=== PATIENT | female | born 1985 | race Caucasian/White ===

== ENCOUNTER 2020-11-05 09:05 | Outpatient (CLI) | payer OTHER ==
--- NOTE | 2020-11-06 13:17 | Mammography Report ---
BILATERAL DIGITAL DIAGNOSTIC MAMMOGRAM 3D/2D: 11/05/2020 CLINICAL: Baseline exam. Palpable right breast lump. Baseline mammogram. No prior exams were available for comparison. The tissue of both breasts is pred ominantly fatty. There is a 1 cm round fat containing oil cyst in the right breast at 12 o'clock anterior depth. This is near the site of palpable abnormality. No other significant masses, calcifications, or other findings are seen in either breast. IMPRESSION: INCOMPLETE: NEEDS ADDITIONAL IMAGING EVALUATION The 1 cm oil cyst in the right breast is benign. It is uncertain if this corresponds to the palpable abnormality. A targeted ultrasound of the palpable abnormality is recommended and will immediately follow. This exam was interpreted at Station ID: [id number]. NOTE: For mammograms, a report in lay terms will be sent to the patient. Approximately 15% of breast malignancies will not be visualized mammographically. In the management of a palpable breast mass, a negative mammogram must not discourage biopsy of a clinically suspicious lesion. Electronically Signed By: Julian Neal M.D. slc/:11/05/2020 10:26:19 ACR BI-RADS Category 0: Incomplete 3340F PARENCHYMAL PATTERN: (F) - The breast(s) demonstrate(s) diffuse fatty replacement. BI-RADS CATEGORY: (0) - 0 Ultrasound [id number] Immediate follow-up LATERALITY: (B)
--- NOTE | 2020-11-06 13:17 | Ultrasound Report ---
LIMITED ULTRASOUND OF RIGHT BREAST: 11/05/2020 CLINICAL: Palpable right breast lump. Comparison is made to exam dated: 11/05/2020 mammogram - [facility]. Color flow ultrasound of the right breast 12 o'clock region was performed. Martinez scale images of the real-time examination were reviewed. There is a benign 1 cm x 1 cm x 0.7 cm oval oil cyst with a septated internal wall in the right breas t at 12 o'clock anterior depth 9 cm from the nipple. This oval oil cyst displays a well-defined boun raffy and posterior acoustic enhancement. This correlates as palpated and with mammography findings. Color flow imaging demonstrates that there is no vascularity present. IMPRESSION: BENIGN There is no sonographic evidence of malignancy. Palpable abnormality corresponds to a 1 cm benign oil cyst in the right breast. Exam findings were conveyed to the patient. Patient is advised to monitor for significant change. Return to screening mammogram schedule is recommended. This exam was interpreted at Station ID: [id number]. Electronically Signed By: Julian Neal M.D. slc/:11/05/2020 11:48:29 Ultrasound BI-RADS: 2 Benign BI-RADS CATEGORY: (2) - 2 Mammogram [id number] 5 year screening LATERALITY: (B)
== END 2020-11-05 09:06 | disposition home or self-care (01) ==
LOC: DI 09:05
PROVIDERS: ATTEND Family Medicine
DX: N60.01 Solitary cyst of right breast (principal)

== ENCOUNTER 2021-01-05 09:16 | Emergency (ER) | payer OTHER ==
[2021-01-05 09:24] VITALS: BP 138/84
--- NOTE | 2021-01-05 10:09 | ED Physician Documentation ---
PD HPI LOWER EXT INJURY - Stated complaint Stated Complaint: L FOOT SWELLING - Chief complaint Chief Complaint: Ext Problem - History obtained from History obtained from: Patient - History of Present Illness PD HPI LOW EXT INJURY LOCATION: Left, Foot Type of injury: Laceration Where injury occurred: Park Timing - onset: How many weeks ago (2) Timing - duration: Weeks (2) Timing - details: Gradual onset, Still present Improved by: Rest, Immobilization Worsened by: Moving, Palpating Associated symptoms: Swelling, Discolored Contributing factors: No: Anticoagulated Similar symptoms before: Has not had sx before Recently seen: Clinic - Additional information Additional information: 35-year-old female was walking in the park when she struck her foot on something in the grass and lacerated the medial aspect of the left foot. She has small cut and this became infected she eventually went to see her primary care doctor and was put on some Septra. She had some generalized swelling of her foot when the infection was active and this has improved. The redness surrounding the laceration improved and then worsened. She has had swelling of both of her feet she has been keeping them up and has had resolution of that. She has some mild swelling to the left foot today and increased redness. She has not had any significant drainage the cut is small. She is not otherwise ill. 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 HEENT: None Psych: Depression, Anxiety Musculoskeletal: Chronic back pain Derm: None - Past Surgical History Past Surgical History: Yes General: Cholecystectomy - Present Medications Home Medications: Ambulatory Orders Medication Instructions Recorded Confirmed Albuterol Sulfate [Proair Hfa 1 - 2 puffs INH Q4H PRN 01/05/21 01/05/21 Inhaler] Cetirizine HCl [Zyrtec] 10 mg PO DAILY 01/05/21 01/05/21 Fluticasone/Salmeterol [Advair 1 each IH DAILY 01/05/21 01/05/21 500-50 Diskus] Sulfamethox/Trimeth 800/160 1 tablet PO BID 01/05/21 01/05/21 [Bactrim Ds] cephALEXin [Keflex] 500 mg PO Q6H #28 cap 01/05/21 - Allergies Allergies/Adverse Reactions: Allergies Allergy/AdvReac Type Severity Reaction Status Date / Time moxifloxacin Allergy Unknown Verified 01/05/21 09:28 - Social History Does the pt smoke?: No Smoking Status: Former smoker Does the pt drink ETOH?: Yes Does the pt have substance abuse?: Yes Substance Use and Type: Marijuana - Immunizations Immunizations are current?: Yes PD ED PE NORMAL - Vitals Vital signs reviewed: Yes (Hypertensive) - General General: Alert and oriented X 3, No acute distress, Well developed/nourished - HEENT HEENT: Atraumatic, PERRL, EOMI - Respiratory Respiratory: No respiratory distress - Derm Derm: Normal color, Warm and dry, No rash - Extremities Extremities: No deformity, Other (There is mild swelling to the left foot and over the dorsal medial surface of the midfoot there is a 1.5 cm laceration that is granulating and has some surrounding erythema. The surrounding erythema is less than 1 cm. There is no lymphangitic streaking.) - Neuro Neuro: Alert and oriented X 3, No motor deficit, No sensory deficit, Normal speech Eye Opening: Spontaneous Motor: Obeys Commands Verbal: Oriented GCS Score: 15 - Psych Psych: Normal mood, Normal affect Results - Vitals Vitals: Vital Signs - 24 hr 01/05/21 09:21 Temperature 36.5 C Heart Rate 86 Respiratory 16 Rate Blood Pressure 138/84 H O2 Saturation 96 Oxygen O2 Source Room air PD MEDICAL DECISION MAKING - ED course Complexity details: considered differential, d/w patient ED course: 35-year-old female has had a laceration to her left foot which has become infected. She was on some Septra this seem to be helping and now it appears the infection has worsened. The infection appears mild and we will place the patient on Keflex. Departure - Departure Disposition: 01 Home, Self Care Clinical Impression: Infected wound Condition: Stable Instructions: Infec Wound Recognize Tx Follow-Up: TC ELDRIDGE DO [Primary Care Provider] - Prescriptions: cephALEXin [Keflex] 500 mg PO Q6H #28 cap
== END 2021-01-05 10:22 | disposition home or self-care (01) ==
LOC: ED 09:16
DX: S91.312A Laceration without foreign body, left foot, initial encounter (principal); L08.9 Local infection of the skin and subcutaneous tissue, unspecified; W26.9XXA Contact with unspecified sharp object(s), initial encounter; Y93.01 Activity, walking, marching and hiking; Y92.830 Public park as the place of occurrence of the external cause; Z87.891 Personal history of nicotine dependence
CPT/HCPCS: 99282; 99284

== ENCOUNTER 2021-04-26 10:43 | Emergency (ER) | payer OTHER ==
[2021-04-26 11:41] VITALS: BP 150/103
--- NOTE | 2021-04-26 12:24 | ED Physician Documentation ---
History of Present Illness - Stated complaint Stated Complaint: BLOOD FROM RIGHT EAR,CONGESTION - Chief complaint Chief Complaint: Heent - History obtained from History obtained from: Patient - Additonal information Additional information: Patient presents with feeling of fullness in both ears as well as some blood drainage from the right ear noticed this morning. She has had a mild cough and cold symptoms for the last couple of days, ears felt full and nose though they were popping yesterday and then she noticed the blood drainage today. She did not use any Q-tips or stick anything into the ear. She has not had a fever, chills, chest pain or dyspnea, abdominal pain, nausea vomiting or diarrhea. She is also requesting a refill of her inhaler, she has mild intermittent asthma which tends to get worse with colds, she called her primary care who is out of the office today and unable to refill her prescription. Review of Systems Ten Systems: 10 systems reviewed and negative Ears: reports: Ear pain, Drainage/discharge. denies: Loss of hearing, Foreign body Nose: reports: Congestion Throat: reports: Reviewed and negative Cardiac: reports: Reviewed and negative Respiratory: reports: Cough. 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 : None HEENT: None Psych: Depression, Anxiety Musculoskeletal: Chronic back pain Derm: None - Past Surgical History Past Surgical History: Yes General: Cholecystectomy - Present Medications Home Medications: Ambulatory Orders Medication Instructions Recorded Confirmed Albuterol Sulfate [Proair Hfa 1 - 2 puffs INH Q4H PRN 01/05/21 01/05/21 Inhaler] Cetirizine HCl [Zyrtec] 10 mg PO DAILY 01/05/21 01/05/21 Fluticasone/Salmeterol [Advair 1 each IH DAILY 01/05/21 01/05/21 500-50 Diskus] Sulfamethox/Trimeth 800/160 1 tablet PO BID 01/05/21 01/05/21 [Bactrim Ds] cephALEXin [Keflex] 500 mg PO Q6H #28 cap 01/05/21 Albuterol Sulf [Ventolin Hfa 1 - 2 puffs INH Q4HR PRN #1 inhaler 04/26/21 Inhaler] Ciproflox/Dexameth Otic Drops 4 drops OT BID #7.5 ml 04/26/21 [Ciprodex Otic Drops] - Allergies Allergies/Adverse Reactions: Allergies Allergy/AdvReac Type Severity Reaction Status Date / Time moxifloxacin Allergy Unknown Verified 01/05/21 09:28 - Social History Does the pt smoke?: No Smoking Status: Former smoker Does the pt drink ETOH?: Yes Does the pt have substance abuse?: Yes - Immunizations Immunizations are current?: Yes PD ED PE NORMAL - Vitals Vital signs reviewed: Yes - General General: Alert and oriented X 3, No acute distress, Well developed/nourished - HEENT HEENT: Atraumatic, Moist mucous membranes, Pharynx benign, Other (TMs normal bilaterally, no tympanic membrane perforation, no erythema. There is a mild abrasion on the base of the right ear canal with some bloody drainage. There is no external ear swelling, no mastoid tenderness bilaterally) - Neck Neck: Supple, no meningeal sign, No JVD - Cardiac Cardiac: RRR, No murmur - Respiratory Respiratory: No respiratory distress, Clear bilaterally - Abdomen Abdomen: Normal bowel sounds, Soft - Derm Derm: Normal color, Warm and dry - Neuro Neuro: Alert and oriented X 3 Eye Opening: Spontaneous Motor: Obeys Commands Verbal: Oriented GCS Score: 15 Results - Vitals Vitals: Vital Signs - 24 hr 04/26/21 11:35 Temperature 36.1 C L Heart Rate 116 H Respiratory 20 Rate Blood Pressure 150/103 H O2 Saturation 96 Oxygen O2 Source Room air PD MEDICAL DECISION MAKING - ED course Complexity details: d/w patient ED course: Patient is here with bloody drainage from the right ear. Her exam is largely reassuring, tympanic membrane is intact, there is no bulging or swelling to suggest infection, there is an abrasion that is bleeding on the base of the right ear canal. I will discharge her with Ciprodex to help prevent infection and assist with pain. Advised patient that the fullness she is feeling is likely eustachian tube dysfunction or congestion from her URI and should improve as her cold symptoms improve though can take longer. She may try [id number] decongestant for this. Advised not to put anything in the ears, no Q-tips or other things into the ears. Patient requesting refill of albuterol, she is not currently in exacerbation of her asthma but I have given a albuterol refill until she is able to follow-up with her primary care provider. Departure - Departure Disposition: 01 Home, Self Care Clinical Impression: Otitis externa Qualifiers: Otitis externa type: other infective Chronicity: acute Laterality: right Qualified Code(s): H60.391 - Other infective otitis externa, right ear Condition: Good Instructions: ED Otitis Externa Ch Prescriptions: Albuterol Sulf [Ventolin Hfa Inhaler] 1 - 2 puffs INH Q4HR PRN #1 inhaler PRN Reason: Shortness Of Air/Wheezing Ciproflox/Dexameth Otic Drops [Ciprodex Otic Drops] 4 drops OT BID #7.5 ml Comments: You have an abrasion of the right ear canal, this is often caused by Q-tips or sticking fingers in the ear but can also be caused from colds and congestion. I have prescribed you an antibiotic called Ciprodex you can place this in the ear as prescribed. I also renewed your albuterol inhaler temporarily but you should follow-up with your primary care provider for ongoing renewals. Discharge Date/Time: 04/26/21 12:31
== END 2021-04-26 12:31 | disposition home or self-care (01) ==
LOC: ED 10:43
DX: S00.411A Abrasion of right ear, initial encounter (principal); X58.XXXA Exposure to other specified factors, initial encounter; J06.9 Acute upper respiratory infection, unspecified; Z87.891 Personal history of nicotine dependence
CPT/HCPCS: 99282; 99283

== ENCOUNTER 2021-05-12 14:49 | Emergency (ER) | payer OTHER ==
[2021-05-12] MEDS ORDERED: CHERRY SYRUP 10 ML UDC PO ONE (15:04)
[2021-05-12] MEDS ORDERED: DEXAMETHASONE 10 MG/ML VIAL PO STA (15:04)
--- NOTE | 2021-05-12 15:08 | ED Physician Documentation ---
History of Present Illness - Stated complaint Stated Complaint: LIP SWELLING - Chief complaint Chief Complaint: Allergic Rx - History obtained from History obtained from: Patient - History of Present Illness Timing: Today - Additonal information Additional information: 35-year-old female had her left lower lip pierced 1 week ago and she initially had a tiny bit of redness associated with it that is now resolved today she has marked swelling just of the left side of her upper lip of her lower lip. She is not on an RADHA inhibitor. She is not having swelling to her tongue. She has not otherwise otherwise been ill.She did have a cough last month that has persisted but improved. Review of Systems Constitutional: denies: Fever, Chills Eyes: denies: Decreased vision Ears: denies: Ear pain Nose: reports: Congestion. denies: Rhinorrhea / runny nose Throat: denies: Sore throat Cardiac: denies: Chest pain / pressure, Palpitations Respiratory: reports: Cough, Wheezing. 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 HEENT: None Psych: Depression, Anxiety Musculoskeletal: Chronic back pain Derm: None - Past Surgical History Past Surgical History: Yes General: Cholecystectomy - Present Medications Home Medications: Ambulatory Orders Medication Instructions Recorded Confirmed Albuterol Sulfate [Proair Hfa 1 - 2 puffs INH Q4H PRN 01/05/21 01/05/21 Inhaler] Cetirizine HCl [Zyrtec] 10 mg PO DAILY 01/05/21 01/05/21 Fluticasone/Salmeterol [Advair 1 each IH DAILY 01/05/21 01/05/21 500-50 Diskus] Sulfamethox/Trimeth 800/160 1 tablet PO BID 01/05/21 01/05/21 [Bactrim Ds] cephALEXin [Keflex] 500 mg PO Q6H #28 cap 01/05/21 Albuterol Sulf [Ventolin Hfa 1 - 2 puffs INH Q4HR PRN #1 inhaler 04/26/21 Inhaler] Ciproflox/Dexameth Otic Drops 4 drops OT BID #7.5 ml 04/26/21 [Ciprodex Otic Drops] - Allergies Allergies/Adverse Reactions: Allergies Allergy/AdvReac Type Severity Reaction Status Date / Time moxifloxacin Allergy Unknown Verified 05/12/21 14:51 - Social History Does the pt smoke?: No Smoking Status: Former smoker Does the pt drink ETOH?: Yes Does the pt have substance abuse?: Yes - Immunizations Immunizations are current?: Yes PD ED PE NORMAL - Vitals Vital signs reviewed: Yes (Hypertensive) - General General: Alert and oriented X 3, No acute distress, Well developed/nourished - HEENT HEENT: Atraumatic, PERRL, EOMI, Ears normal, Pharynx benign, Dentition benign, Other (There is angioedema to the left lower lip and there is a piercing through the middle of this without signs of inflammation surrounding the study and there is no drainage there is no fluctuance minimally tender.) - Neck Neck: Supple, no meningeal sign, No bony TTP - Cardiac Cardiac: RRR, No murmur - Respiratory Respiratory: No respiratory distress, Clear bilaterally - Abdomen Abdomen: Normal bowel sounds, Soft, Non tender, Non distended, No organomegaly - Back Back: No CVA TTP, No spinal TTP - Derm Derm: Normal color, Warm and dry, No rash - Extremities Extremities: No deformity, No edema - Neuro Neuro: Alert and oriented X 3, 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, No motor deficit, No sensory deficit, Normal speech Eye Opening: Spontaneous Motor: Obeys Commands Verbal: Oriented GCS Score: 15 - Psych Psych: Normal mood, Normal affect Results - Vitals Vitals: Vital Signs - 24 hr 05/12/21 14:51 Temperature 36.5 C Heart Rate 83 Respiratory 16 Rate Blood Pressure 142/93 H O2 Saturation 96 Oxygen O2 Source Room air PD MEDICAL DECISION MAKING - ED course Complexity details: reviewed results, re-evaluated patient, considered differential, d/w patient ED course: 35-year-old female with swelling to her left lower lip looks like angioedema is administered dexamethasone and Benadryl. I have asked her to use a nonsedating histamine for the next 2 days. She is not on an RADHA inhibitor. She is fully vaccinated. She has a foreign body in her lip and she has not had signs or symptoms consistent with infection. I have asked her to return should she develop drainage or hany redness to the area. Departure - Departure Disposition: 01 Home, Self Care Clinical Impression: Angioedema of lips Qualifiers: Encounter type: initial encounter Qualified Code(s): T78.3XXA - Angioneurotic edema, initial encounter Condition: Stable Instructions: ED Angioedema Follow-Up: TC ELDRIDGE DO [Primary Care Provider] - Comments: Cristin, today we have diagnosed you with angioedema. The expectation with this is that the swelling will resolve and your lips look normal. If you have a recurrence of the swelling or the swelling does not go down my recommendation is to remove the stud. If you develop signs of infection with redness and drainage follow-up here for antibiotics. In the meantime the recommendation is to take a antihistamine for the next 2 days. You can take Benadryl or you can take your nonsedating Zyrtec.
[2021-05-12 15:22] VITALS: BP 146/92
== END 2021-05-12 15:22 | disposition home or self-care (01) ==
LOC: ED 14:49
DX: T78.3XXA Angioneurotic edema, initial encounter (principal); Z87.891 Personal history of nicotine dependence
CPT/HCPCS: 99282; A9270

== ENCOUNTER 2023-04-07 09:48 | Emergency (ER) | payer OTHER ==
[2023-04-07 10:05] VITALS: BP 143/105
--- OUTSIDE RECORDS SUMMARY | 2023-04-07 10:17 | EXTERNAL MEDICAL SUMMARY RPT | Continuity of Care Document ---
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 Name Role Phone Airam Cottrell Unavailable Unavailable Medications date description facility 2023-02-25 00:00 Fluticasone Propion-Salmeterol [facility] Social History date description facility 2023-02-25 00:00 Smokes tobacco daily ([facility] Vital Signs date measurement value units 2023-02-25 00:00 BMI 47.6 kg/m2 2023-02-25 00:00 BP_diastolic 80 mmHg 2023-02-25 00:00 BP_systolic 110 mmHg 2023-02-25 00:00 heart_rate 103 /min 2023-02-25 00:00 height_metric 163.83 cm 2023-02-25 00:00 height_standard 64.5 in 2023-02-25 00:00 o2_saturation 97 % 2023-02-25 00:00 temperature_metric 36.72 C 2023-02-25 00:00 temperature_standard 98.1 F 2023-02-25 00:00 weight_metric 127.91 kg 2023-02-25 00:00 weight_standard 281.99 lb
--- NOTE | 2023-04-07 10:30 | ED Physician Documentation ---
PD HPI URI - Stated complaint Stated Complaint: SOA - Chief complaint Chief Complaint: Resp - History obtained from History obtained from: Patient - History of Present Illness Timing - onset: How many weeks ago (2) Timing duration: Weeks (2) Timing details: Gradual onset, Still present (has had URI symptoms with cough and wheeze for 2 weeks and was some improving but then worse the past 3-4 days with increased wheezing and productive cough.) Associated symptoms: Chills, Productive cough, Dyspnea. No: NVD, Bilateral edema Contributing factors: COPD / asthma. 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 HEENT: None Psych: Depression, Anxiety Musculoskeletal: Chronic back pain Derm: None - Past Surgical History Past Surgical History: Yes General: Cholecystectomy - Present Medications Home Medications: Ambulatory Orders Medication Instructions Recorded Confirmed Albuterol Sulf [Ventolin Hfa 1 - 2 puffs INH Q4HR PRN #1 inhaler 04/26/21 04/07/23 Inhaler] Albuterol Sulf [Ventolin Hfa 2 - 3 puffs INH QID #1 each 04/07/23 Inhaler] Doxycycline Hyclate 100 mg PO BID 7 Days #14 cap 04/07/23 Fluticasone/Salmeterol [Advair 2 puffs INH DAILY 04/07/23 04/07/23 250-50 Diskus] Fluticasone/Salmeterol [Advair 1 each IH BID 30 Days #1 each 04/07/23 500-50 Diskus] Loratadine 10 mg PO DAILY 04/07/23 04/07/23 dexAMETHasone [Decadron] 4 mg PO DAILY #7 tablet 04/07/23 - Allergies Allergies/Adverse Reactions: Allergies Allergy/AdvReac Type Severity Reaction Status Date / Time moxifloxacin Allergy Unknown Verified 04/07/23 10:00 - Social History Does the pt smoke?: No Smoking Status: Former smoker Does the pt drink ETOH?: Yes Does the pt have substance abuse?: Yes - Immunizations Immunizations are current?: Yes PD ED PE NORMAL - Vitals Vital signs reviewed: Yes - General General: Alert and oriented X 3, No acute distress, Well developed/nourished - HEENT HEENT: Ears normal, Pharynx benign - Neck Neck: Supple, no meningeal sign, No adenopathy - Cardiac Cardiac: RRR, No murmur - Respiratory Respiratory: No respiratory distress. No: Clear bilaterally (diffuse wheeeezing without coarse sounds. ) - Abdomen Abdomen: Soft, Non tender - Derm Derm: Normal color, Warm and dry - Neuro Neuro: Alert and oriented X 3, No motor deficit, Normal speech Results - Vitals Vitals: Vital Signs - 24 hr 04/07/23 04/07/23 04/07/23 09:56 11:01 12:11 Temperature 37.1 C 36 C L Heart Rate 96 102 H 85 Respiratory 20 18 Rate Blood Pressure 143/105 H O2 Saturation 95 93 Oxygen O2 Source Room air - Rads (name of study) chest xray Relevant Findings:: Prelim report reviewed (no focal consolidation.), EMP independent interpretation of test (no pneumonia) PD Medical Decision Making - ED course Complexity details: reviewed results (chest xray no pnumonia, PTX, effusion.), re-evaluated patient (improved wheezing and breathing with neb treatment here. ), considered differential (has had URI with now increased productive cough and worse athma symptoms. Is out of her Advair past few days. Low on Albuterol but had refills available. Seems likely viral illness initially but consider secondary bacterial LRI now. ), d/w patient Departure - Departure Disposition: 01 Home, Self Care Clinical Impression: Lower resp. tract infection, Acute exacerbation of extrinsic asthma Condition: Stable Record reviewed to determine appropriate education?: Yes Follow-Up: TC ELDRIDGE DO [Primary Care Provider] - Prescriptions: Fluticasone/Salmeterol [Advair 500-50 Diskus] 1 each IH BID 30 Days #1 each dexAMETHasone [Decadron] 4 mg PO DAILY #7 tablet Doxycycline Hyclate 100 mg PO BID 7 Days #14 cap Albuterol Sulf [Ventolin Hfa Inhaler] 2 - 3 puffs INH QID #1 each Comments: Continue with your Advair twice daily. Use the albuterol inhaler 2 to 3 puffs 4 times daily for the next several days to a week. Add dexamethasone steroid orally for the next week. Your chest x-ray is clear without any signs of pneumonia. However given the flare of your asthma and the persistence of your cough, consideration would be potential bronchitis and so I would prescribe doxycycline twice daily for a week as well. I sent these prescriptions to your preferred pharmacy, [facility]. Recheck if not improving well over the next several days and return if worse. Forms: PCP List Discharge Date/Time: 04/07/23 12:11
[2023-04-07] MEDS: DOXYCYCLINE 100 MG TABLET PO STA (10:57)
[2023-04-07] MEDS: dexAMETHasone 4 MG TABLET PO STA (10:57)
[2023-04-07] MEDS: ALBUTEROL NEB 2.5 MG/3 ML INH STA (11:01)
--- NOTE | 2023-04-07 11:57 | XRAY Report ---
PROCEDURE: Chest 1 View X-Ray INDICATIONS: cough over a week; wheezing TECHNIQUE: One view of the chest was acquired. COMPARISON: None. FINDINGS: Surgical changes and devices: None. Lungs and pleura: No pleural effusions or pneumothorax. Lungs are clear. Mediastinum: Mediastinal contours appear normal. Heart size is normal. Bones and chest wall: No suspicious bony lesions. Overlying soft tissues appear unremarkable. IMPRESSION: No acute cardiopulmonary process. No focal consolidation seen. Reviewed by: Casey Suero MD on 04/07/2023 11:56 AM PDT Approved by: Casey Suero MD on 04/07/2023 11:56 AM PDT Station ID: [id number]
[2023-04-07 12:20] VITALS: O2SAT 93
== END 2023-04-07 12:11 | disposition home or self-care (01) ==
LOC: ED 09:48
DX: J45.901 Unspecified asthma with (acute) exacerbation (principal); J22 Unspecified acute lower respiratory infection; Z87.891 Personal history of nicotine dependence; Z79.899 Other long term (current) drug therapy; Z79.51 Long term (current) use of inhaled steroids
CPT/HCPCS: 94664; 99284

== ENCOUNTER 2023-04-19 14:02 | Emergency (ER) | payer OTHER ==
[2023-04-19 14:33] VITALS: BP 143/87; O2SAT 98
--- NOTE | 2023-04-19 15:31 | ED Physician Documentation ---
History of Present Illness - Stated complaint Stated Complaint: SWELLING/PX IN THROAT - Chief complaint Chief Complaint: General - Additonal information Additional information: 37-year-old female here for 3 days of painful blistering in the back of her throat as well as white spots coating her tongue and oropharynx. She recently completed a course of doxycycline for bronchitis. Seen in this emergency department on 07 April. Reports inability to eat due to painful swallow. She did have some mild relief of symptoms by using a baking soda salt rinse yesterday evening. She has not taken any oral medications. 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 : None HEENT: None Psych: Depression, Anxiety Musculoskeletal: Chronic back pain Derm: None - Past Surgical History Past Surgical History: Yes General: Cholecystectomy - Present Medications Home Medications: Ambulatory Orders Medication Instructions Recorded Confirmed Albuterol Sulf [Ventolin Hfa 1 - 2 puffs INH Q4HR PRN #1 inhaler 04/26/21 04/07/23 Inhaler] Albuterol Sulf [Ventolin Hfa 2 - 3 puffs INH QID #1 each 04/07/23 Inhaler] Doxycycline Hyclate 100 mg PO BID 7 Days #14 cap 04/07/23 Fluticasone/Salmeterol [Advair 2 puffs INH DAILY 04/07/23 04/07/23 250-50 Diskus] Fluticasone/Salmeterol [Advair 1 each IH BID 30 Days #1 each 04/07/23 500-50 Diskus] Loratadine 10 mg PO DAILY 04/07/23 04/07/23 dexAMETHasone [Decadron] 4 mg PO DAILY #7 tablet 04/07/23 Fluconazole [Diflucan] 1 tablet PO ONCE 1 Days #1 tablet 04/19/23 Nystatin [Mycostatin] 10 ml PO QID 7 Days #280 ml 04/19/23 - Allergies Allergies/Adverse Reactions: Allergies Allergy/AdvReac Type Severity Reaction Status Date / Time moxifloxacin Allergy Unknown Verified 04/07/23 10:00 - Social History Does the pt smoke?: No Smoking Status: Former smoker Does the pt drink ETOH?: Yes Does the pt have substance abuse?: Yes - Immunizations Immunizations are current?: Yes PD ED PE EXPANDED - General General: Alert, No acute distress - HEENT HEENT: Other (Generally erythematous posterior oropharynx with multiple white plaques on the posterior tongue and oropharynx tonsillar beds. Uvula was midline, no soft palate asymmetry or swelling. Normal phonation, normal swallow. No trismus.) Results - Vitals Vitals: Vital Signs - 24 hr 04/19/23 14:23 Temperature 36.1 C L Heart Rate 89 Respiratory 18 Rate Blood Pressure 143/87 H O2 Saturation 98 Oxygen O2 Source Room air PD Medical Decision Making - ED course Complexity details: d/w patient ED course: 37-year-old female here for painful swallow redness and blisters in the back of her throat and white plaques coating the tongue and posterior oropharynx. Given recent antibiotics history and exam most consistent with an oral thrush. She will be started on nystatin as well as a single dose of fluconazole. Recommended Motrin and Tylenol for analgesia. No red flags or exam findings consistent with RPA or ANESTHESIOLOGIST/PHYSICIAN. The usual emergent return precautions discussed for worsening symptoms. Departure - Departure Disposition: 01 Home, Self Care Clinical Impression: Thrush, oral Condition: Stable Record reviewed to determine appropriate education?: Yes Instructions: Thrush Oral Prescriptions: Fluconazole [Diflucan] 1 tablet PO ONCE 1 Days #1 tablet Nystatin [Mycostatin] 10 ml PO QID 7 Days #280 ml Comments: You have developed a painful sore throat and white patches on the back of your tongue and throat. This is consistent with thrush which is an overgrowth of yeast in the mouth and this is most likely related to completing your course of doxycycline. I have sent a prescription for nystatin to the pharmacy. You should use this 4 times a day for the next week. A single dose of oral fluconazole is also been sent. In general would recommend they take Tylenol and ibuprofen for throat discomfort. After having treatment I would expect symptoms to be steadily improving over the next 2 to 3 days. Return to the ER for any new or worsening symptoms.
--- OUTSIDE RECORDS SUMMARY | 2023-04-19 15:38 | EXTERNAL MEDICAL SUMMARY RPT | Continuity of Care Document ---
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
== END 2023-04-19 15:52 | disposition home or self-care (01) ==
LOC: ED 14:02
DX: B37.0 Candidal stomatitis (principal); Z87.891 Personal history of nicotine dependence
CPT/HCPCS: 99282; 99283

== ENCOUNTER 2023-09-05 20:08 | Emergency (ER) | payer OTHER ==
[2023-09-05 21:20] LABS: RAPID STREP SCREEN Negative (Negative)
[2023-09-05] MEDS: predniSONE 20 MG TABLET PO STA (21:48)
[2023-09-05] MEDS: PSEUDOEPHEDRINE 30 MG TABLET PO STA (21:48)
--- NOTE | 2023-09-05 21:50 | ED Physician Documentation ---
PD HPI URI - Stated complaint Stated Complaint: SORE THROAT/EAR PX/ASTHMA - Chief complaint Chief Complaint: Heent - History obtained from History obtained from: Patient - History of Present Illness Timing - onset: Today Pain level max: 4 Pain level now: 4 Associated symptoms: Sore throat Contributing factors: COPD / asthma Improves by: Rest, MDI/nebulizer Worsened by: Activity, Breathing Recently seen: Not recently seen - Additional information Additional information: Patient is a 37-year-old female with a history of asthma who presents to the emergency department with cough, nasal congestion and sore throat. She is concerned about potential strep pharyngitis. She has inhalers and nebulizers at home. Has been using the inhaler but not her nebulizer. No significant respiratory difficulties. She states that she is having significant nasal congestion and postnasal drip. Denies any possibility of . Review of Systems Constitutional: denies: Fever, Chills Nose: reports: Rhinorrhea / runny nose, Congestion Respiratory: reports: Cough, Wheezing. 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 : None HEENT: None Psych: Depression, Anxiety Musculoskeletal: Chronic back pain Derm: None - Past Surgical History Past Surgical History: Yes General: Cholecystectomy - Present Medications Home Medications: Ambulatory Orders Medication Instructions Recorded Confirmed Albuterol Sulf [Ventolin Hfa 1 - 2 puffs INH Q4HR PRN #1 inhaler 04/26/21 09/05/23 Inhaler] Fluticasone/Salmeterol [Advair 1 each IH BID 30 Days #1 each 04/07/23 09/05/23 500-50 Diskus] Loratadine 10 mg PO DAILY 04/07/23 09/05/23 Benzonatate [Tessalon] 200 mg PO TID PRN #30 cap 09/05/23 Cetirizine HCl/Pseudoephedrine 1 tab PO BID PRN #20 tab 09/05/23 [Zyrtec-D ER 5 mg-120 mg Tablet] Montelukast [Singulair] 10 mg PO DAILY 09/05/23 09/05/23 predniSONE [Deltasone] 10 mg PO [id number] #42 tab 09/05/23 - Allergies Allergies/Adverse Reactions: Allergies Allergy/AdvReac Type Severity Reaction Status Date / Time moxifloxacin Allergy Unknown Verified 09/05/23 21:32 - Social History Does the pt smoke?: No Smoking Status: Never smoker Does the pt drink ETOH?: Yes Does the pt have substance abuse?: Yes - Immunizations Immunizations are current?: Yes PD ED PE NORMAL - Vitals Vital signs reviewed: Yes - General General: Alert and oriented X 3, No acute distress - HEENT HEENT: PERRL, Ears normal, Moist mucous membranes, Other (Posterior pharyngeal erythema without tonsillar exudates. Postnasal drip present. Uvula midline. Normal phonation. No trismus.) - Neck Neck: Supple, no meningeal sign, No adenopathy - Cardiac Cardiac: RRR, Strong equal pulses - Respiratory Respiratory: No respiratory distress, Other (mild wheeze B) - Abdomen Abdomen: Soft, Non tender, Non distended - Derm Derm: Warm and dry, No rash - Neuro Neuro: Alert and oriented X 3 - Psych Psych: Normal mood, Normal affect Results - Vitals Vitals: Vital Signs - 24 hr 09/05/23 20:46 Temperature 36.6 C Heart Rate 94 Respiratory 18 Rate Blood Pressure 127/80 O2 Saturation 99 Oxygen O2 Source Room air - Labs Labs: Laboratory Tests 09/05/23 20:54 Group A Strep Rapid Negative PD Medical Decision Making - ED course Complexity details: reviewed results, re-evaluated patient, considered differential, d/w patient ED course: Patient is very well-appearing, nontoxic. Afebrile. No hypoxia. No respiratory distress. Appears to have significant postnasal drip, likely causing the sore throat. Respiratory PCR was ordered but patient declines this. Her rapid strep is negative. Will place on steroids, decongestants and cough medication for home. Appears to be a viral upper respiratory illness. No indication for chest x-ray at this time. No fevers. Patient counseled regarding signs and symptoms for which I believe and urgent re-evaluation would be necessary. Patient with good understanding of and agreement to plan and is comfortable going home at this time This document was made in part using voice recognition software. While efforts are made to proofread this document, sound alike and grammatical errors may occur. Departure - Departure Disposition: Home, Self Care Clinical Impression: Viral URI Condition: Good Instructions: ED Viral Syndrome Follow-Up: TC ELDRIDGE DO [Primary Care Provider] - Within 1 week Prescriptions: predniSONE [Deltasone] 10 mg PO [id number] #42 tab Benzonatate [Tessalon] 200 mg PO TID PRN #30 cap PRN Reason: Cough Cetirizine HCl/Pseudoephedrine [Zyrtec-D ER 5 mg-120 mg Tablet] 1 tab PO BID PRN #20 tab PRN Reason: nasal congestion Comments: [facility] [place]. Please make sure you are using your inhaler and nebulizer at home. Your rapid strep is negative today. A backup throat culture is sent and if this is positive, we will contact you. Please return if you worsen. Forms: PCP List
[2023-09-05 22:05] VITALS: BP 128/78; O2SAT 100
[2023-09-05 22:18] LABS: B. PARAPERTUSSIS- RESP PCR PAN NOT DETECTED; B. PERTUSSIS- RESP PCR PANEL NOT DETECTED; C. PNEUMONIAE- RESP PCR PANEL NOT DETECTED; CORONAVIRUS 229E-RESP PCR NOT DETECTED; CORONAVIRUS HKU1-RESP PCR NOT DETECTED; CORONAVIRUS NL63-RESP PCR NOT DETECTED; CORONAVIRUS OC43-RESP PCR NOT DETECTED; HUMAN METAPNEUMOVIRUS NOT DETECTED; INFLUENZA A- RESP PCR PANEL NOT DETECTED; INFLUENZA B - RESP PCR PANEL NOT DETECTED; M. PNEUMONIAE- RESP PCR PANEL NOT DETECTED; PARAINFLUENZA VIRUS 1 NOT DETECTED; PARAINFLUENZA VIRUS 2 NOT DETECTED; PARAINFLUENZA VIRUS 3 NOT DETECTED; PARAINFLUENZA VIRUS 4 NOT DETECTED; RHINOVIRUS/ENTEROVIRUS NOT DETECTED; RSV- RESP PCR PANEL NOT DETECTED; SARS-CoV-2 -RESP PCR PANEL NOT DETECTED
== END 2023-09-05 22:02 | disposition home or self-care (01) ==
LOC: ED 20:08
DX: J06.9 Acute upper respiratory infection, unspecified (principal)
CPT/HCPCS: 87070; 87430; 87633; 99283; A9270; J7512

== ENCOUNTER 2023-09-10 10:21 | Emergency (ER) | payer OTHER ==
--- NOTE | 2023-09-10 11:53 | XRAY Report ---
PROCEDURE: Chest 2V INDICATIONS: cough/congestion TECHNIQUE: 2 views of the chest were acquired. COMPARISON: 04/07/2023. FINDINGS: Surgical changes and devices: None. Lungs and pleura: No pleural effusions or pneumothorax. Lungs are clear. Mediastinum: Mediastinal contours appear normal. Heart size is normal. Bones and chest wall: No suspicious bony lesions. Overlying soft tissues appear unremarkable. IMPRESSION: No acute cardiopulmonary process. Reviewed by: Jason Ramsay MD on 09/10/2023 11:52 AM PST Approved by: Jason Ramsay MD on 09/10/2023 11:52 AM PST Station ID: [id number]
--- NOTE | 2023-09-10 12:10 | ED Physician Documentation ---
PD HPI URI - Stated complaint Stated Complaint: SOA,RIB PX - Chief complaint Chief Complaint: Resp - History obtained from History obtained from: Patient - Additional information Additional information: Patient is a 37-year-old female presenting for evaluation of 1 week of nasal congestion and dry cough.Patient was seen in the emergency department 5 days ago and started on prednisone. She does have a history of asthma and has been using her inhaler. She is also been using Zyrtec-D. Reports that the cough keeps her up at night and she has pain all over her body from coughing so hard. Patient w as concerned about developing pneumonia. 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 : None HEENT: None Psych: Depression, Anxiety Musculoskeletal: Chronic back pain Derm: None - Past Surgical History Past Surgical History: Yes General: Cholecystectomy - Present Medications Home Medications: Ambulatory Orders Medication Instructions Recorded Confirmed Albuterol Sulf [Ventolin Hfa 1 - 2 puffs INH Q4HR PRN #1 inhaler 04/26/21 09/10/23 Inhaler] Fluticasone/Salmeterol [Advair 1 each IH BID 30 Days #1 each 04/07/23 09/10/23 500-50 Diskus] Loratadine 10 mg PO DAILY 04/07/23 09/10/23 Benzonatate [Tessalon] 200 mg PO TID PRN #30 cap 09/05/23 09/10/23 Cetirizine HCl/Pseudoephedrine 1 tab PO BID PRN #20 tab 09/05/23 09/10/23 [Zyrtec-D ER 5 mg-120 mg Tablet] Montelukast [Singulair] 10 mg PO DAILY 09/05/23 09/10/23 predniSONE [Deltasone] 10 mg PO [id number] #42 tab 09/05/23 09/10/23 guaiFENesin/CODEINE [Robitussin AC] 5 - 10 ml PO Q6H PRN #120 ml 09/10/23 - Allergies Allergies/Adverse Reactions: Allergies Allergy/AdvReac Type Severity Reaction Status Date / Time moxifloxacin Allergy Unknown Verified 09/10/23 10:40 - Social History Does the pt smoke?: No Smoking Status: Never smoker Does the pt drink ETOH?: Yes Does the pt have substance abuse?: Yes - Immunizations Immunizations are current?: Yes PD ED PE NORMAL - General General: Alert and oriented X 3, No acute distress, Well developed/nourished - HEENT HEENT: Atraumatic, Moist mucous membranes, Pharynx benign - Neck Neck: Supple, no meningeal sign - Cardiac Cardiac: RRR, Strong equal pulses - Respiratory Respiratory: No respiratory distress, Clear bilaterally, Other (Bronchospasm with taking deep breaths) - Abdomen Abdomen: Soft, Non tender - Derm Derm: Warm and dry - Extremities Extremities: No edema, No calf tenderness / cord - Neuro Neuro: Normal speech Results - Vitals Vitals: Vital Signs - 24 hr 09/10/23 09/10/23 09/10/23 10:35 11:10 12:36 Temperature 36.8 C Heart Rate 96 91 Respiratory 20 17 17 Rate Blood Pressure 108/77 124/72 O2 Saturation 97 94 Oxygen O2 Source Room air PD Medical Decision Making - ED course Complexity details: reviewed results, d/w patient ED course: Patient with cough and congestion for at least a week presenting for evaluation without significant improvement while on prednisone and albuterol. Vital signs are stable. Does occasionally have some bronchospasms with taking deep breaths. Chest x-ray which I reviewed is negative for pneumonia. At this time I do not see clear indications for antibiotic treatment. She does report having significant nasal congestion and drainage and advised on use of saline sprays in the nose. She was also given a prescription for small amount of cough medication and discussed continued supportive care. Patient counseled on concerning symptoms to return for. Departure - Departure Disposition: 01 Home, Self Care Clinical Impression: Upper respiratory infection Condition: Stable Instructions: ED Bronchitis Asthmatic Prescriptions: guaiFENesin/CODEINE [Robitussin AC] 5 - 10 ml PO Q6H PRN #120 ml PRN Reason: Cough Comments: Your chest x-ray does not show signs of pneumonia. Please continue with the albuterol inhaler as well as the prednisone. I have sent a prescription for small amount of cough medication to the [facility] pharmacy. Please continue to stay hydrated. I would also recommend trial of saline sprays in the nose to help loosen congestion. FINDINGS: Surgical changes and devices: None. Lungs and pleura: No pleural effusions or pneumothorax. Lungs are clear. Mediastinum: Mediastinal contours appear normal. Heart size is normal. Bones and chest wall: No suspicious bony lesions. Overlying soft tissues appear unremarkable. IMPRESSION: No acute cardiopulmonary process. Forms: PCP List Discharge Date/Time: 09/10/23 12:37
[2023-09-10 12:39] VITALS: BP 124/72; O2SAT 94
== END 2023-09-10 12:37 | disposition home or self-care (01) ==
LOC: ED 10:21
DX: J06.9 Acute upper respiratory infection, unspecified (principal)
CPT/HCPCS: 99283